=== PATIENT | male | born 1995 ===

== ENCOUNTER 2016-07-05 12:19 | Emergency (ER) | payer OTHER ==
--- NOTE | 2016-07-05 12:38 | C.PDOC ---
History Of Present Illness 20 y/o male c/o itching to penis and scrotum; pt had dysuria 1 month ago, was seen by a physician and treated with an unknown po antibiotic 1 tab per day x 20 days, just finished last week. pt sts he was treated for a 'female infection ' and sts his female partner, with whom he has unprotected sex, told him she was treated as well. pt reports 2 bumps as well in genital area. Time Seen by Provider: 07/05/16 12:31 Chief Complaint (Nursing): Male Genitourinary History Per: Patient History/Exam Limitations: no limitations Current Symptoms Are (Timing): Still Present Severity: Mild Quality Of Discomfort: Other (itching to penis and testes) Past Medical History Reviewed: Historical Data, Nursing Documentation, Vital Signs Vital Signs: Last Vital Signs Temp 98.2 F 07/05/16 14:50 Pulse 76 07/05/16 14:50 Resp 18 07/05/16 14:50 BP 120/78 07/05/16 14:50 Pulse Ox 99 07/05/16 14:50 - Medical History PMH: No Chronic Diseases Surgical History: No Surg Hx Family History: States: Unknown Family Hx - Social History Hx Tobacco Use: No Hx Alcohol Use: No Hx Substance Use: No - Immunization History Hx Tetanus Toxoid Vaccination: No Hx Influenza Vaccination: No Hx Pneumococcal Vaccination: No Review Of Systems Constitutional: Negative for: Fever, Chills Gastrointestinal: Negative for: Nausea, Vomiting, Abdominal Pain Genitourinary: Positive for: Rash, Penile Pain. Negative for: Dysuria, Frequency, Incontinence, Penile Discharge Skin: Positive for: Rash, Other (vesicles on penis) Physical Exam - Physical Exam Appears: Non-toxic, No Acute Distress Skin: Normal Color, Warm, Dry Gastrointestinal/Abdominal: Normal Exam, Soft, No Tenderness Male Genital: Normal Inspection, No Testicular Tenderness, No Testicular Swelling, No Inguinal Tenderness, No Inguinal Swelling, No Scrotal Swelling, No Circumcised, Other (vesicle on foreskin and glans penis) Neurological/Psych: Oriented x3, Normal Speech, Normal Cognition, Normal Motor, Normal Sensation ED Course And Treatment O2 Sat by Pulse Oximetry: 98 Medical Decision Making Medical Decision Making: treat for gc, chlamydia and herpes with outpatient gu f/u 300 -m discussed at length with pt need to have partner checked, to abstain from sexual relation until seen by clinic and /or specialist. Disposition Counseled Patient/Family Regarding: Diagnosis, Need For Followup, Rx Given - Disposition Disposition: HOME/ ROUTINE Disposition Time: 15:02 Condition: GOOD Additional Instructions: Take medications as directed. Recommend no sexual relations until you have follow up in clinic. Call for appointments. Prescriptions: Acyclovir [Zovirax] 400 mg PO TID #21 tablet Instructions: Genital Herpes Simplex (ED), Sexually Transmitted Diseases (ED) Forms: Gen Discharge Inst Korean - Clinical Impression Clinical Impression: Sexually transmitted disease
[2016-07-05] MEDS ORDERED: cefTRIAXone (Rocephin) 250 mg Inj IM STA (13:01)
[2016-07-05 13:17] LABS: URINE BILIRUBIN NEGATIVE (NEGATIVE); URINE BLOOD NEGATIVE (NEGATIVE); URINE COLOR Straw (YELLOW); URINE GLUCOSE (UA) NORMAL (Normal); URINE KETONE NEGATIVE (NEGATIVE); URINE LEUKOCYTE ESTERASE NEG Leu/uL (Negative); URINE PROTEIN NEGATIVE (NEGATIVE); URINE UROBILINOGEN NORMAL mg/dL (0.2-1.0)
[2016-07-05] MEDS ORDERED: cefTRIAXone 250 MG in Lidocaine Hydrochloride 1 ML IM ONE (14:00)
[2016-07-05 14:51] VITALS: RESP 18; TEMP 98.2
[2016-07-05 15:04] VITALS: O2SAT 98
[2016-07-05 15:12] VITALS: BP 124/72; PULSE 75
== END 2016-07-05 15:13 | disposition home or self-care (01) ==
LOC: C.ER 12:19
DX: A60.01 Herpesviral infection of penis (principal)

== ENCOUNTER 2016-07-22 11:31 | Emergency (ER) | payer OTHER ==
[2016-07-22 11:33] VITALS: BP 133/78; PULSE 77; RESP 18; TEMP 98.1; O2SAT 100
[2016-07-22] MEDS ORDERED: Tetanus/Diphtheria Toxoids 0.5 ml Syringe IM ONE ×2 (11:43→12:06)
[2016-07-22] MEDS ORDERED: Fluorescein 1 mg Ophthalmic Strip ONE (11:43)
[2016-07-22] MEDS ORDERED: Tetracaine 0.5% Ophth (OR ONLY) ONE (11:43)
[2016-07-22] MEDS ORDERED: Tetracaine 0.5% Ophth 2 ML BOTTLE OD STA (11:43)
--- NOTE | 2016-07-22 11:57 | C.PDOC ---
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 Otherwise, pt denies visual changes, blurry vision, eye discharges, eye swelling, redness, tearing, denies contact use. Ambulate to ED for evaluation, not in any apparent distress. Time Seen by Provider: 07/22/16 11:41 Chief Complaint (Nursing): Eye Problem History Per: Patient Onset/Duration Of Symptoms: Sudden Onset Current Symptoms Are (Timing): Still Present Past Medical History Reviewed: Historical Data, Nursing Documentation, Vital Signs Vital Signs: Last Vital Signs Temp 98.1 F 07/22/16 11:33 Pulse 77 07/22/16 11:33 Resp 18 07/22/16 11:33 BP 133/78 07/22/16 11:33 Pulse Ox 100 07/22/16 11:33 - Medical History PMH: No Chronic Diseases Family History: States: Unknown Family Hx - Social History Hx Tobacco Use: No Hx Alcohol Use: Yes Hx Substance Use: No - Immunization History Hx Tetanus Toxoid Vaccination: No Hx Influenza Vaccination: No Hx Pneumococcal Vaccination: No Review Of Systems Except As Marked, All Systems Reviewed And Found Negative. Constitutional: Negative for: Fever, Chills Eyes: Positive for: Other (Right eye FB sensation). Negative for: Vision Change , Eyelid Inflammation ENT: Negative for: Ear Discharge, Nose Discharge, Throat Pain Skin: Negative for: Rash Neurological: Negative for: Altered Mental Status, Headache, Dizziness Physical Exam - Physical Exam Appears: Well, Non-toxic, No Acute Distress Skin: Normal Color, Warm, No Rash Head: Atraumatic, Normacephalic Eye(s): bilateral: PERRL, EOMI, right: Other (small metal corneal FB noted at 6o 'clock, No ulcer, no periorbital edema, erythema.), left: Normal Inspection Ear(s): Bilateral: Normal Nose: Normal, No Discharge Oral Mucosa: Moist, No Drooling Tongue: Normal Appearing Lips: Normal Appearing Throat: Normal, No Erythema, No Exudate, No Drooling Neck: Normal, Normal ROM, Supple Neurological/Psych: Oriented x3, Normal Speech ED Course And Treatment O2 Sat by Pulse Oximetry: 100 Progress Note: On re-evaluation, pt is afebrile, hemodynamicaly stable. NOn- toxic. Right eye: FB removed, no complication, no residual, pt tolerate procedure well. VA: R20/30, L20/40, B/L 20/30 w/o correction. tetanus, eye patch applied to Right eye. Pt advised on course of ds. Advised on work protection. Ref. to F/u with Opht in 1-2 days for re-eavl. return if nay new changes. Eye Treatment - Treatment Performed Eye Treatment: Other: (Tetracaine) Foreign Body Removal With: Irrigation, Needle (#23 ro Right eye) Residual Material After FB Removal: None Disposition Counseled Patient/Family Regarding: Diagnosis, Need For Followup, Rx Given - Disposition Referrals: Saul Everett MD [Staff Provider] - Disposition: HOME/ ROUTINE Disposition Time: 11:56 Condition: STABLE Additional Instructions: Take medication as prescribed Eye patch for 1 week Protection at work!!! Follow up with Ophtalmology in 1-2 days for re-evaluation. Return to ED if any worsening or new changes. Prescriptions: Neomycin/Polymyxin/Dexamethaso [Dexamethasone/Neomycin/Polymyxin 5 Ml] 2 drop RIGHTEYE Q4 #1 bottle Instructions: Eye Foreign Body (ED) Print Language: RUSSIAN - Clinical Impression Clinical Impression: Corneal foreign body
== END 2016-07-22 12:10 | disposition home or self-care (01) ==
LOC: C.ER 11:31
DX: T15.01XA Foreign body in cornea, right eye, initial encounter (principal); X58.XXXA Exposure to other specified factors, initial encounter; Y92.89 Other specified places as the place of occurrence of the external cause; Y99.0 Civilian activity done for income or pay